=== PATIENT | male | born 1990 | race Caucasian/White ===

== ENCOUNTER → 2017-06-24 15:34 | Outpatient (CLI) | payer BC, SELFPAY ==
--- NOTE | 2017-06-24 15:37 | CT_ITS ---
STUDY: CT FACIAL BONES WITHOUT CONTRAST REASON FOR EXAM: Male, 27 years old. Sinusitis. RADIATION DOSAGE (If Supplied By Facility): CTDIvol = ( 33.45 ) mGy, DLP = ( 826.54 ) mGycm TECHNIQUE: The patient was scanned in a multi detector CT scanner. Sagittal and coronal images were reconstructed. Individualized dose optimization techniques were used for this CT. COMPARISON: None. FINDINGS: Normal soft tissue structures. Normal orbital jaquez and orbital contents. Normal nasal bones and anterior nasal spine. Normal facial bones. There is no demonstrated fracture. Normal visualized paranasal sinuses. CT/Sinus/Facial Bone IMPRESSION: Normal unenhanced CT of the facial bones. Electronically Signed: Tobin Greene MD at 15:23 EST , Service support ,
== END ==
PROVIDERS: Family Provider Family Medicine; PCP Family Medicine; Visit Provider Otolaryngology
DX: J32.9 Chronic sinusitis, unspecified (principal)
CPT/HCPCS: 70486

== ENCOUNTER → 2018-12-07 | Outpatient (CLI) | payer BC, SELFPAY ==
--- NOTE | 2018-12-07 07:09 | CT_ITS ---
STUDY: CT BRAIN AND SINUSES WITHOUT CONTRAST REASON FOR EXAM: Male, 28 years old. Sinusitis, headache RADIATION DOSAGE (If Supplied By Facility): CTDIvol = ( 33.06 ) mGy, DLP = ( 771.87 ) mGycm TECHNIQUE: Transaxial CT imaging of the brain was performed without administration of contrast. Individualized dose optimization techniques were used for this CT. COMPARISON: Prior CT sinuses of July 04, 2016 FINDINGS: The study is limited as the superiormost aspect of the brain and calvarium are not included in the [id number] of this study. CT BRAIN Normal soft tissue structures. The visualized calvarium is unremarkable. Normal size ventricles and extra-axial spaces for the patient's age. Normal white matter tracts of the cerebral hemispheres. Normal basal ganglia and thalami. Normal brainstem. Normal cerebellum. There is no intracranial hemorrhage. There are no findings of an acute ischemic infarction. CT SINUSES Post Surgical Changes: None. Frontal Sinus and Recess: Normal aeration without mucosal inflammatory disease. Ethmoidal Sinuses: Normal aeration without mucosal inflammatory disease. Maxillary Sinuses: Normal aeration without mucosal inflammatory disease. Ostiomeatal Complex: Clear. Sphenoid Sinus: Normal aeration without mucosal inflammatory disease. Sphenoethmoidal Recess: Clear. Nasal Turbinate (Right): Middle Turbinate (Right): Normal. Middle Turbinate (Left): Normal. Inferior Turbinate (Right): Normal. Inferior Turbinate (Left): Normal. Nasal Septum: Midline. Nasal Airway: Clear. Cribiform Plate / Anterior Cranial Fossa: Normal. Orbits: Normal. CT/Sinus/Facial Bone IMPRESSION: Technically limited study as the top of the cranium is not included in the [id number] of this study. The study is otherwise unremarkable. Electronically Signed: Stanley Vanessa MD at 17:03 EDT , Service support ,
== END | disposition home or self-care (01) ==
PROVIDERS: Family Provider Family Medicine; PCP Family Medicine
DX: J32.9 Chronic sinusitis, unspecified (principal)
CPT/HCPCS: 70486

== ENCOUNTER → 2020-04-30 07:05 | Outpatient (CLI) | payer OTHER, BC, SELFPAY ==
[2020-04-17 07:08] VITALS: BMI 23.1
[2020-04-27 07:09] VITALS: BMI 23.1
--- NOTE | 2020-04-30 07:09 | MRI_ITS ---
STUDY: MRI LEFT SHOULDER REASON FOR EXAM: Male, 30 years old. left shoulder strain, painful with pulling or lifting movement TECHNIQUE: Standardized fat and water weighted pulse sequences were obtained in all 3 orthogonal planes. COMPARISON: X-ray dated 04/06/2020. FINDINGS: Minimal supraspinatus tendinosis without tear. Normal infraspinatus tendon. Normal subscapularis tendon. Normal teres minor tendon. Normal supraspinatus muscle. Normal infraspinatus muscle. Normal subscapularis muscle. Normal teres minor muscle. Normal glenohumeral articulation. Normal humeral head and visualized proximal humerus. Normal biceps labral complex. Normal intracapsular long biceps tendon. Normal labrum. Normal capsulo- ligamentous complex. Normal rotator interval. Mild acromioclavicular joint arthrosis with bone marrow and capsular edema. Intact coracohumeral and coracoacromial ligaments. Normal quadrilateral space. Normal axillary space. Normal deltoid muscle. Normal trapezius muscle. MRI/Upper Ext Joint Only(Routine) IMPRESSION: Mild low-grade AC joint sprain without tear Minimal supraspinatus tendinosis Rotator cuff and labrum intact Electronically Signed: Dc Felipe DO at 8:13 EST Tel , Service support ,
== END ==
PROVIDERS: PCP Family Medicine; Referring Provider Physician Assistant Surgical; Visit Provider Physician Assistant Surgical
DX: S46.912A Strain of unspecified muscle, fascia and tendon at shoulder and upper arm level, left arm, initial encounter (principal)
CPT/HCPCS: 73221

== ENCOUNTER 2020-07-05 09:30 | Outpatient (RCR) | payer OTHER, BC, SELFPAY ==
[2020-05-01 07:06] VITALS: BMI 22.9
[2020-05-22 07:09] VITALS: BMI 22.6
--- NOTE | 2020-05-22 10:14 | HP.PTEVAL ---
Patient's Visit Information LASHAWN RICCI is a 30 year old M referred to Physical Therapy by ADA Hendricks with a diagnosis of STRAIN ON UNSPECIFIED MUSCLE ,FASCA AND TENDON AT SHOULDER AND UPPER. Date of Evaluation: 05/22/20 Physical Therapist: Darrel Silverio, PT, Cert MDT, OCS - Visit Plan Frequency: 3x /Week Duration: 4-6 Months Plan: PT INTERVENTIONS RTC/SCAPULAR STRENGTHENING,POSTURAL EX'S,FUNCTIONAL STRENGTHENING - Subjective This 30 y/o male presents to physical therapy with left shoulder pain. Patient injuried right shoulder 2016 thus had right surgery SLAP tear . Then ,left shoulder pain by pulling strap felt immediate pain stinging burning anterior shoulder on 03/2420 . [facility] -. Patient then MRI AC strain ,negative otherwise.Aggraveting shoulder reaching behind back ,push ups tightness ,job demands,lifting [place]. .Patient alleviating factors ice ,teylonal. Denies parathesia /tingling. Patient pain affects sleeping.Patient is on light duty with lifting restriction 20#. Patient pain affect QOL and job demands. Patient shoulder pain affects QOL and RTW full duty. - Pain Right Shoulder Pain Intensity (Out of 10): 0 Comment: increase with activity 07/18 - Objective POSTURE: WFL. PALAPTION: intact. NEURO: intact. AROM: shoulder flexion 160 degrees,160 degrees abduction ,ER 90 degrees,ER 90 degrres,IR T11. MMT: RTC 4/5,DETOILD 4/5,SCAPULAR 4-/5. SCAPULAR HUMERAL FUNCTION: 1:1 - Special Tests L Shoulder Lift Off Test - Subscapular Tear: Negative L Shoulder Drop Sign - IS Test: Negative L Shoulder Empty Can - SS: Negative L Shoulder Neer - Impingement: Negative L Shoulder Davis Bek[place] - Impingement: Negative - Goals Goal 1:: Patient to be I with HEP. Goal Time Frame: 4-6 Weeks Goal 2:: Patient to RTW full duty without pain Goal Time Frame: 4-6 Weeks Goal 3:: Patient to improve quiick dash by 5 points or > to improve function. Goal Time Frame: 4-6 Weeks Goal 4:: Patient to increase strength 5/5 shoulder anshu RTW fully duty. - Rehabilitation Potential Physical Therapy Diagnosis: This pateint has stain left shoulder with decrease ability to RTW fully duty with pain with OH activities and function with job demands Rehabilitation Potential: Good - Anticipated Interventions Patient/Client Instruction: Educate patient on: Condition, Plan of Care For the Purpose of:: To decrease pain, To improve muscle performance and motor function, To improve ability to perform ADL's, To increase tolerance to activity/condition/position, To improve ability of physical actions for home/community/work/leisure, To decrease soft tissue restriction, To increase flexibility/ROM, To improve health and function, To improve ability to perform tasks related to life management Therapeutic Exercise to Include: Strength training, Postural training, Flexibilty training, Scapular Strength/Stabilization Comment: RTC For the Purpose of:: To decrease pain, To improve muscle performance and motor function, To increase tolerance to activity/condition/position, To improve ability of physical actions for home/community/work/leisure, To improve gait and locomotor functions, To increase flexibility/ROM, To improve endurance, To reduce risk of recurrence, To improve ability to perform tasks related to life management Thank you for the opportunity to evaluate your patient. For Medicare and Medicare HMO plans, please review the plan of care and approve it. It will need to be FAXED BACK to us at [phone] for Medicare purposes. For Medicare only, by signing this I certify the plan of care. Please let me know if there are questions or concerns regarding this plan of care. Physician Signature: Date:
--- NOTE | 2020-07-05 10:09 | HP.PTDCSUM ---
It has been my pleasure to treat LASHAWN RICCI referred by ADA Hendricks, with the diagnosis of STRAIN ON UNSPECIFIED MUSCLE ,FASCA AND TENDON AT SHOULDER AND UPPER for a total of 12 visit(s). Discharge Date: 07/05/20 Please see the following information for a summary of their discharge status. Subjective: Patient denies any pain and states working out is going well. Patient states he is independent and compliant with his HEP. Right Shoulder Pain Intensity (Out of 10): 0 % Improvement: 85 Objective/Function: UE MMT: L flexion 5/5, abd 5/5, empty can 5/5, IR 5/5, ER 5/5. R flexion 5/5, abd 5/5, empty can 5/5, IR 5/5, ER 5/5. UE ROM: R shoulder flexion 176 degrees, abd 165 degrees. L shoulder flexion 174 degrees, abd 165 degrees. Patient tolerated all exercise this date with no reports of pain. Responded well to ice post-exercise for symptom management. Patient demonstrates improvements with shoulder strength and ROM. Denies any pain at end ROM in all planes. Goal 1:: Patient to be I with HEP. Goal Progress: Goal Met Goal 2:: Patient to RTW full duty without pain Goal Progress: Progressing Goal 3:: Patient to improve quiick dash by 5 points or > to improve function. Goal Progress: Goal Met Goal 4:: Patient to increase strength 5/5 shoulder anshu RTW fully duty. Goal Progress: Goal Met Plan: D/C to HEP. Discharge Comments: D/C to HEP. Patient demonstrates improvements in shoulder strength and ROM. If there are questions or concerns regarding this patient's physical therapy, please feel free to call me at [phone]. Thank you for the referral of this patient. Sincerely, Darrel Silverio, PT, Cert MDT, OCS
== END 2020-07-05 19:00 | disposition home or self-care (01) ==
LOC: PT 09:30
PROVIDERS: PCP Family Medicine; Referring Provider Physician Assistant Surgical; Visit Provider Physician Assistant Surgical
DX: S46.912D Strain of unspecified muscle, fascia and tendon at shoulder and upper arm level, left arm, subsequent encounter (principal)
CPT/HCPCS: 97110; 97161; 97530